=== PATIENT | female | born 1995 | race Caucasian/White ===

== ENCOUNTER 2018-01-18 22:03 | Emergency (ER) | payer OTHER ==
[~2018-01-18] VITALS: Ht 160 cm; Wt 86.2 kg
[2018-01-19] MEDS ORDERED: AMOXICILLIN500 M3 PO (00:50)
[2018-01-19] MEDS ORDERED: ROBITUSSIN COU237 M1 PO (00:50)
[2018-01-19] MEDS ORDERED: IBUPROFEN600 M1 PO (00:50)
[2018-01-19] MEDS ORDERED: PREDNISONE20 M1 PO (00:50)
--- NOTE | 2018-01-19 00:51 | ED INFLUENZA/URI COMPLAINT ---
History of Present Illness General Chief Complaint: General Adult Stated Complaint: SINUS PRESSURE X2 WEEKS Source: patient, old records Exam Limitations: no limitations Vital Signs & Intake/Output Vital Signs & Intake/Output Vital Signs Date Time Temp Pulse Resp B/P B/P Pulse O2 O2 Flow FiO2 Mean Ox Delivery Rate 01/18 2225 99.7 107 18 149/82 97 Room Air ED Intake and Output 01/19 0000 01/18 1200 Intake Total Output Total Balance Patient 190 lb Weight Weight Estimated Measurement Method Allergies Coded Allergies: NO KNOWN ALLERGIES (06/15/11) Triage Note: RECEIVED 22 YO FEMALE C/O SINUS PRESSURE AND STIFFY NOSE X 2 WEEKS WITH HEADACHE AND DIFFICULTY HEARING. PT ALSO REPORTS SORE THROAT And difficulty swallowing Triage Nurses Notes Reviewed? yes Onset: 2 weeks Duration: week(s):, constant, continues in ED Timing: recent history Severity: moderate, severe Prior Episodes/Possible Cause: allergen, illness exposure No Modifying Factors: none Associated Symptoms: cough, dizziness, facial pain, muscle aches, nasal congestion, nasal drainage, sinus infection, sore throat LMP (ages 10-50): unknown : No Patient currently breastfeeds: No HPI: 2 weeks prior to admission patient complains of sinus congestion nonproductive cough of green expectorant. She also complains of sore throat body aches and dizziness. She knows developed decreased hearing in the right and pain on the left ear. She denies fever chills chest pain shortness of breath dysuria rash bleeding. Past History Travel History Traveled to [place] past 21 day No Medical History Any Pertinent Medical History? none Neurological: NONE EENT: NONE Cardiovascular: NONE Respiratory: NONE Gastrointestinal: NONE Hepatic: NONE Renal: NONE Musculoskeletal: NONE Psychiatric: NONE Endocrine: NONE Blood Disorders: NONE Cancer(s): NONE Surgical History Surgical History: non-contributory Psychosocial History What is your primary language Chilean Tobacco Use: Never used Family History Hx Contributory? No Review of Systems Review of Systems Constitutional: Reports: see HPI, chills, malaise. EENTM: Reports: see HPI, ear pain, hearing changes, nasal congestion, throat pain. Respiratory: Reports: see HPI, cough, sputum production. Denies: short of breath. Cardiovascular: Reports: no symptoms. GI: Reports: no symptoms. Genitourinary: Reports: no symptoms. Musculoskeletal: Reports: see HPI, muscle pain. Skin: Reports: no symptoms. Neurological/Psychological: Reports: no symptoms. Hematologic/Endocrine: Reports: no symptoms. Immunologic/Allergic: Reports: no symptoms. All Other Systems: Reviewed and Negative Physical Exam Physical Exam General Appearance: well developed/nourished, alert, awake, anxious, mild distress, obese Head: normal appearance, tenderness (Sinus) Eyes: Bilateral: normal appearance, PERRL, EOMI. Ears, Nose, Throat: moist mucous membrane, hearing grossly normal, nasal congestion, nasal drainage, pharyngeal erythema, left TM erythema Neck: normal inspection, supple, full range of motion, trachea midline, lymphadenopathy (R), lymphadenopathy (L), no midline tenderness Respiratory: normal breath sounds, chest non-tender, no respiratory distress, quiet respiration, lungs clear Cardiovascular: regular rate/rhythm, normal peripheral pulses, norml femoral pulses equa Peripheral Pulses: 4+ carotid (R), 4+ carotid (L) Gastrointestinal: normal bowel sounds, soft, non-tender, no organomegaly Back: normal inspection, normal range of motion, no vertebral tenderness Extremities: normal inspection, normal capillary refill, normal range of motion, no edema Neurologic/Psych: no motor/sensory deficits, awake, alert, oriented x 3, normal gait, normal mood/affect, 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 Skin: intact, normal color, warm/dry Lymphatic: adenopathy Core Measures Sepsis Present: No Sepsis Focused Exam Completed? No Progress Differential Diagnosis: influenza, otitis, pneumonia, pharyngitis, sinusitis Plan of Care: Orders Procedure Date/time Status THROAT CULTURE W/QUICK STREP 01/18 2227 Active Current Medications Sig/Gregg Start time Last Medication Dose Stop Time Status Admin Ibuprofen 600 MG ONCE ONE 01/19 100 UNVr (Motrin) 01/19 101 Amoxicillin 750 MG ONCE ONE 01/19 45 UNVr (Amoxil) 01/19 46 Guaifenesin/ 10 ML ONCE ONE 01/19 45 UNVr Dextromethorphan 01/19 46 (Robitussin Dm) Oxymetazoline HCl 2 SPRAY ONCE ONE 01/19 45 UNVr (Afrin) 01/19 46 Prednisone 60 MG ONCE ONE 01/19 45 UNVr 01/19 46 Initial ED EKG: none Departure Departure Time of Disposition: 47 Disposition: HOME OR SELF CARE Condition: Stable Clinical Impression Primary Impression: Sinusitis Secondary Impressions: Bronchitis, Otitis media Referrals: Felipa Downing MD (PCP/Family) Departure Forms: Customer Survey General Discharge Information RELEASE- WORK Prescriptions: Current Visit Scripts Amoxicillin 1 TAB PO TID #30 TAB Prednisone 1 TAB PO BID #10 TAB Ibuprofen 1 TAB PO Q6P PRN pain #30 TAB with food Guaifenesin/Dextromethorphan (Robitussin Cough-Chest Dm Liq) 5-10 ML PO Q6P PRN cough #240 ML
[2018-01-19 01:03] VITALS: BP 124/76
== END 2018-01-19 01:04 ==
LOC: ERH 22:03
DX: J32.9 Chronic sinusitis, unspecified (principal); J40 Bronchitis, not specified as acute or chronic; H66.92 Otitis media, unspecified, left ear